=== PATIENT | female | born 1990 | race Caucasian/White ===

== ENCOUNTER 2019-03-30 17:25 | Emergency (ER) | payer BC ==
[~2019-03-30] VITALS: Ht 177.8 cm; Wt 75.0 kg
[2019-03-30 22:21] VITALS: BP 119/67
== END 2019-03-30 22:38 | disposition home or self-care (01) ==
LOC: ER 17:53
DX: S63.614A Unspecified sprain of right ring finger, initial encounter (principal); W21.05XA Struck by basketball, initial encounter; Y93.67 Activity, basketball; Y92.89 Other specified places as the place of occurrence of the external cause
CPT/HCPCS: 73140; 99283